=== PATIENT | male | born 1930 | race Asian ===

== ENCOUNTER 2016-04-21 00:43 | Inpatient (IN) | payer OTHER, MEDICAID ==
[~2016-04-21] VITALS: Ht 170.2 cm; Wt 77.4 kg
[2016-04-21] VITALS (7 sets, daily range): BP systolic 105–135; BP diastolic 51–74
[~2016-04-21 00:43] MED LIST: ASPI-825 PO; BENA1TAB17 PO; DOXA2TAB PO; DUTA.5 PO; FERR-89 PO; ISOS30TA6 PO; LORA1TAB3 PO; METO-323 PO; MULT-1259 PO; NITR.4 SL; OMEP20 PO; SIMV-259 PO; VITA1TAB20 PO
[2016-04-21] MEDS ORDERED: ACETAMINOPHEN 500 MG TABLET PO ONE (02:30)
[2016-04-21] MEDS ORDERED: ALBUTEROL SULFATE 5 MG/ML 20 ML NEB SOLN [BULK] NEB ONE (02:30)
[2016-04-21] MEDS ORDERED: CefTRIAXone 1 GM/DEXTROSE 50 ML IV ONE (02:30)
[2016-04-21] MEDS ORDERED: IPRATROPIUM BROMIDE 0.5 MG/2.5 ML NEB SOLUTION NEB ONE (02:30)
[2016-04-21] MEDS ORDERED: MethylPREDNISolone SOD SUCC 125 MG/2 ML VIAL IVP ONE (02:30)
[2016-04-21 02:41] LABS: BASOPHILS # (AUTO) 0.03 K/uL (0.00-0.20); BASOPHILS % (AUTO) 0.3 % (0.0-2.0); EOSINOPHILS # (AUTO) 0.03 K/uL (0.00-0.70); EOSINOPHILS % (AUTO) 0.36 % (1.0-6.0); HEMATOCRIT 33.5 % (41-53); HEMOGLOBIN 10.9 g/dL (13.5-17.5); LYMPHOCYTES # (AUTO) 0.5 K/uL (1.0-4.8); LYMPHOCYTES % (AUTO) 6.5 % (22.0-44.0); MEAN CORPUSCULAR HGB CONC 32.4 G/dL (31.0-37.0); MEAN CORPUSCULAR VOLUME 74 fL (80-100); MONOCYTES # (AUTO) 0.6 K/uL (0.1-1.0); MONOCYTES % (AUTO) 7.1 % (2.0-9.0); NEUTROPHILS # (AUTO) 7.1 K/uL (1.8-7.7); NEUTROPHILS % (AUTO) 85.7 % (40.0-70.0); PLATELET COUNT (AUTO) 151 K/uL (150-450); RED BLOOD CELL COUNT(AUTO) 4.52 MIL/uL (4.50-5.90); RED CELL DISTRIBUTION WIDTH 16.5 % (11.5-14.5); WHITE BLOOD COUNT (AUTO) 8.3 K/uL (4.5-11.0)
[2016-04-21 02:50] LABS: ANION GAP 8 mmol/L (8-16); CALCIUM, TOTAL 8.4 mg/dL (8.8-10.5); CARBON DIOXIDE 27 mmol/L (22-29); CHLORIDE 98 mmol/L (98-107); CREATININE 0.96 mg/dL (0.60-1.30); GLOMERULAR FILTR. RATE CALC > 60 mL/min (>60); POTASSIUM 3.7 mmol/L (3.5-5.1); SODIUM SERUM 133 mmol/L (136-145); UREA NITROGEN, BLOOD 16 mg/dL (7-18)
[2016-04-21 02:56] LABS: ALANINE AMINOTRANSFERASE 34 U/L (12-78); ALBUMIN 3.5 g/dL (3.4-5.0); ASPARTATE AMINOTRANSFERASE 23 U/L (15-37); BILIRUBIN,TOTAL 0.4 mg/dL (0.1-1.0); TOTAL PROTEIN, SERUM 7.8 g/dL (6.4-8.2)
[2016-04-21 02:59] LABS: RBC MORPHOLOGY COMMENT ABNORMAL RBC MORPH
[2016-04-21 03:00] LABS: B-TYPE NATRIURETIC PEPTIDE 38 pg/mL (0-100)
[2016-04-21] MEDS ORDERED: ASPIRIN 325 MG TABLET PO ONE (04:15)
[2016-04-21] MEDS ORDERED: 0.9% SODIUM CHLORIDE 10 ML SYRINGE IVP PRN (04:15)
[2016-04-21] MEDS ORDERED: ACETAMINOPHEN 325 MG TABLET PO PRN ×2 (04:15→05:15)
[2016-04-21] MEDS ORDERED: ONDANSETRON HCL 4 MG/2 ML VIAL IVP PRN ×2 (04:15→05:15)
[2016-04-21 05:04] LABS: INFLUENZA TYPE B NEGATIVE FOR TYPE B (NEGATIVE)
[2016-04-21] MEDS ORDERED: BISACODYL 10 MG RECTAL RECTAL SUPPOSITORY PR PRN (05:15)
[2016-04-21] MEDS ORDERED: ZOLPIDEM TARTRATE 5 MG TABLET PO PRN (05:15)
[2016-04-21] MEDS ORDERED: LORazepam 0.5 MG TABLET PO PRN (05:15)
[2016-04-21] MEDS ORDERED: IPRATROPIUM BROMIDE 0.5 MG/2.5 ML NEB SOLUTION NEB PRN (05:15)
[2016-04-21] MEDS ORDERED: OxyCODONE HCL/ACETAMINOPHEN 5-325 MG TABLET PO PRN (05:15)
[2016-04-21] MEDS ORDERED: ALBUTEROL SULFATE 2.5 MG/0.5 ML NEB SOLUTION NEB PRN (05:15)
[2016-04-21] MEDS ORDERED: MAGNESIUM HYDROXIDE SUSPENSION 30 ML UDCUP PO PRN (05:15)
[2016-04-21] MEDS ORDERED: IPRATROPIUM BROMIDE 0.5 MG/2.5 ML NEB SOLUTION NEB SCH (07:00)
[2016-04-21] MEDS ORDERED: ALBUTEROL SULFATE 2.5 MG/0.5 ML NEB SOLUTION NEB SCH (07:00)
[2016-04-21] MEDS: OMEPRAZOLE 20 MG CAPSULE PO SCH (08:53)
[2016-04-21] MEDS: FERROUS SULFATE 325 MG EC TABLET PO SCH (08:53)
[2016-04-21] MEDS: MULTIVITAMINS WITH MINERALS, THERAPEUTIC TABLET PO SCH (08:54)
[2016-04-21] MEDS: METOPROLOL SUCCINATE 25 MG ER TABLET PO SCH (08:54)
[2016-04-21] MEDS: HYDROCHLOROTHIAZIDE 25 MG TABLET PO SCH (08:55)
[2016-04-21] MEDS: HEPARIN SODIUM,PORCINE 5,000 UNITS/ML VIAL SQ SCH ×2 (08:56→20:52)
[2016-04-21] MEDS: DOXAZOSIN MESYLATE 2 MG TABLET PO SCH (08:59)
[2016-04-21] MEDS ORDERED: MethylPREDNISolone SOD SUCC 125 MG/2 ML VIAL IVP SCH (09:00)
[2016-04-21] MEDS ORDERED: [UNRECOGNIZED DRUG - OTHER] PO SCH (09:00)
[2016-04-21] MEDS: BENAZEPRIL HCL 10 MG TABLET PO SCH (09:56)
[2016-04-21] MEDS: ISOSORBIDE MONONITRATE 20 MG TABLET PO SCH (09:56)
[2016-04-21] MEDS: MethylPREDNISolone SOD SUCC 40 MG/ML VIAL IVP SCH (18:09)
[2016-04-21] MEDS ORDERED: DUTASTERIDE 0.5 MG CAPSULE PO SCH (18:30)
[2016-04-21 19:43] LABS: APPEARANCE,URINE CLEAR (CLEAR); GLUCOSE, URINE (UA) 500 mg/dL (NEGATIVE); KETONES,URINE NEGATIVE (NEGATIVE); LEUKOCYTE ESTERASE ,URINE NEGATIVE (NEGATIVE); OCCULT BLOOD,URINE NEGATIVE (NEGATIVE); PH,URINE 5.5 (5.0-8.0); PROTEIN,URINE NEGATIVE (NEGATIVE)
[2016-04-21 19:44] LABS: ADD UA MICROSCOPIC YES; RBC,URINE None Seen /HPF (0-2); WBC,URINE None Seen /HPF (0-5)
[2016-04-21] MEDS ORDERED: SIMVASTATIN 10 MG TABLET PO SCH (21:00)
[2016-04-21] MEDS: IPRATROPIUM BROMIDE 0.5 MG/2.5 ML NEB SOLUTION NEB SCH (21:45)
[2016-04-21] MEDS: ALBUTEROL SULFATE 2.5 MG/0.5 ML NEB SOLUTION NEB SCH (21:45)
[2016-04-22] MEDS: MethylPREDNISolone SOD SUCC 40 MG/ML VIAL IVP SCH ×3 (00:27→16:18)
[2016-04-22] MEDS: ALBUTEROL SULFATE 2.5 MG/0.5 ML NEB SOLUTION NEB SCH ×3 (02:33→15:16)
[2016-04-22] MEDS: IPRATROPIUM BROMIDE 0.5 MG/2.5 ML NEB SOLUTION NEB SCH ×3 (02:33→15:16)
[2016-04-22] MEDS: GuaiFENesin/D-METHORPHAN/PHENYLEPH 5 ML LIQUID ORAL.SYG PO PRN ×2 (03:50→09:01)
[2016-04-22 04:00] VITALS: BP 132/70
[2016-04-22 06:32] LABS: BASOPHILS % (AUTO) 0.2 % (0.0-2.0); EOSINOPHILS % (AUTO) 0 % (1.0-6.0); HEMATOCRIT 32.2 % (41-53); HEMOGLOBIN 9.9 g/dL (13.5-17.5); LYMPHOCYTES # (AUTO) 0.8 K/uL (1.0-4.8); LYMPHOCYTES % (AUTO) 7.2 % (22.0-44.0); MEAN CORPUSCULAR HEMOGLOBIN 23.1 pg (26.0-34.0); MEAN CORPUSCULAR HGB CONC 30.8 G/dL (31.0-37.0); MEAN CORPUSCULAR VOLUME 75 fL (80-100); MONOCYTES # (AUTO) 0.3 K/uL (0.1-1.0); NEUTROPHILS # (AUTO) 9.8 K/uL (1.8-7.7); PLATELET COUNT (AUTO) 162 K/uL (150-450); RED BLOOD CELL COUNT(AUTO) 4.29 MIL/uL (4.50-5.90); RED CELL DISTRIBUTION WIDTH 16.8 % (11.5-14.5); WHITE BLOOD COUNT (AUTO) 10.9 K/uL (4.5-11.0)
[2016-04-22 06:43] LABS: NEUTROPHILS % (AUTO) 89.6 % (40.0-70.0)
[2016-04-22 07:01] LABS: ALANINE AMINOTRANSFERASE 29 U/L (12-78); ALBUMIN 3.1 g/dL (3.4-5.0); ANION GAP 9 mmol/L (8-16); ASPARTATE AMINOTRANSFERASE 15 U/L (15-37); BILIRUBIN,TOTAL 0.3 mg/dL (0.1-1.0); CALCIUM, TOTAL 8.5 mg/dL (8.8-10.5); CARBON DIOXIDE 26 mmol/L (22-29); CHLORIDE 101 mmol/L (98-107); CREATININE 0.85 mg/dL (0.60-1.30); GLOMERULAR FILTR. RATE CALC > 60 mL/min (>60); PHOSPHORUS 3.5 mg/dL (2.5-4.9); POTASSIUM 3.8 mmol/L (3.5-5.1); SODIUM SERUM 136 mmol/L (136-145); TOTAL PROTEIN, SERUM 7.4 g/dL (6.4-8.2); UREA NITROGEN, BLOOD 19 mg/dL (7-18)
[2016-04-22 07:45] VITALS: BP 141/80
[2016-04-22] MEDS ORDERED: CefTRIAXone 1 GM/DEXTROSE 50 ML IV SCH (08:00)
[2016-04-22 08:24] LABS: RBC MORPHOLOGY COMMENT ABNORMAL RBC MORPH
[2016-04-22] MEDS ORDERED: SODIUM CHLORIDE 0.9% 100 ML ONE (08:42)
[2016-04-22] MEDS: FERROUS SULFATE 325 MG EC TABLET PO SCH (08:55)
[2016-04-22] MEDS: METOPROLOL SUCCINATE 25 MG ER TABLET PO SCH (08:55)
[2016-04-22] MEDS: MULTIVITAMINS WITH MINERALS, THERAPEUTIC TABLET PO SCH (08:56)
[2016-04-22] MEDS: OMEPRAZOLE 20 MG CAPSULE PO SCH (08:56)
[2016-04-22] MEDS: DOXAZOSIN MESYLATE 2 MG TABLET PO SCH ×2 (08:56→09:13)
[2016-04-22] MEDS: BENAZEPRIL HCL 10 MG TABLET PO SCH (08:57)
[2016-04-22] MEDS: HEPARIN SODIUM,PORCINE 5,000 UNITS/ML VIAL SQ SCH (08:58)
[2016-04-22] MEDS: HYDROCHLOROTHIAZIDE 25 MG TABLET PO SCH (09:00)
[2016-04-22] MEDS: ISOSORBIDE MONONITRATE 20 MG TABLET PO SCH (09:15)
[2016-04-22 11:17] VITALS: BP 112/69
[2016-04-22] MEDS ORDERED: ASPIRIN 81 MG CHEWABLE TABLET PO SCH (12:30)
[2016-04-22 15:13] VITALS: BP 117/66
[2016-04-22 16:37] LABS: GLUCOSE COMMENT 1 Received Meds; GLUCOSE,POINT OF CARE 157 MG/DL (70-110)
[2016-04-22] MEDS ORDERED: COMBISP IH (17:38)
[2016-04-22] MEDS ORDERED: PRED5 PO (17:41)
== END 2016-04-22 18:15 | disposition home or self-care (01) | DRG 190 ==
LOC: EMS 00:45 → 5N 04:22
PROVIDERS: ADMIT Internal Medicine; ATTEND Internal Medicine
DX: J44.1 Chronic obstructive pulmonary disease with (acute) exacerbation (principal); J18.9 Pneumonia, unspecified organism; E87.1 Hypo-osmolality and hyponatremia; J44.0 Chronic obstructive pulmonary disease with (acute) lower respiratory infection; N40.0 Benign prostatic hyperplasia without lower urinary tract symptoms; K21.9 Gastro-esophageal reflux disease without esophagitis; I10 Essential (primary) hypertension; E78.00 Pure hypercholesterolemia, unspecified; D50.9 Iron deficiency anemia, unspecified; I25.10 Atherosclerotic heart disease of native coronary artery without angina pectoris; I25.9 Chronic ischemic heart disease, unspecified; E11.9 Type 2 diabetes mellitus without complications; I49.5 Sick sinus syndrome; E78.5 Hyperlipidemia, unspecified; Z79.899 Other long term (current) drug therapy; Z79.84 Long term (current) use of oral hypoglycemic drugs; Z79.82 Long term (current) use of aspirin; Z95.0 Presence of cardiac pacemaker; Z95.5 Presence of coronary angioplasty implant and graft; Z98.890 Other specified postprocedural states
CPT/HCPCS: 82962; 83735; 84100; 87040; 87804; 93005; 93306; 94640; 96365; 96375; 99285; J0696; J1644; J2920; J2930; J7050

== ENCOUNTER → 2016-08-11 | Outpatient (CLI) | payer OTHER, MEDICAID ==
[~2016-08-11] MED LIST changes: +COMBISP IH; +PRED5 PO
== END | disposition home or self-care (01) ==
LOC: RADPV 08:44
PROVIDERS: ATTEND Family Medicine
DX: R10.2 Pelvic and perineal pain (principal)
CPT/HCPCS: 76856

== ENCOUNTER → 2016-10-19 | Outpatient (CLI) | payer OTHER, MEDICAID | END | disposition home or self-care (01) | LOC: RADPV 11:11 | PROVIDERS: ATTEND Family Medicine | DX: M16.0 Bilateral primary osteoarthritis of hip (principal); M17.12 Unilateral primary osteoarthritis, left knee; M65.862 Other synovitis and tenosynovitis, left lower leg | CPT/HCPCS: 73521 ==

== ENCOUNTER → 2016-10-22 | Outpatient (CLI) | payer OTHER, MEDICAID | END | disposition home or self-care (01) | LOC: RADPV 08:42 | PROVIDERS: ATTEND Family Medicine | DX: I70.203 Unspecified atherosclerosis of native arteries of extremities, bilateral legs (principal) | CPT/HCPCS: 93925; 93970 ==

== ENCOUNTER 2017-03-02 11:16 | Inpatient (IN) | payer MEDICARE, MEDICAID ==
[~2017-03-02] VITALS: Ht 167.6 cm; Wt 75.0 kg
[~2017-03-02 11:16] MED LIST changes: -METO-323 PO; +METO25XL PO
[2017-03-02 13:29] LABS: BASOPHILS % (AUTO) 0.6 % (0.0-2.0); HEMATOCRIT 33.6 % (41-53); HEMOGLOBIN 10.7 g/dL (13.5-17.5); LYMPHOCYTES # (AUTO) 0.9 K/uL (1.0-4.8); MEAN CORPUSCULAR HEMOGLOBIN 24.6 pg (26.0-34.0); MEAN CORPUSCULAR VOLUME 77 fL (80-100); MONOCYTES % (AUTO) 14.5 % (2.0-9.0); NEUTROPHILS # (AUTO) 4.9 K/uL (1.8-7.7); NEUTROPHILS % (AUTO) 70.9 % (40.0-70.0); PLATELET COUNT (AUTO) 180 K/uL (150-450); RED BLOOD CELL COUNT(AUTO) 4.36 MIL/uL (4.50-5.90); RED CELL DISTRIBUTION WIDTH 14.9 % (11.5-14.5)
[2017-03-02 13:56] LABS: ANION GAP 9 mmol/L (8-16); CALCIUM, TOTAL 8.5 mg/dL (8.8-10.5); CARBON DIOXIDE 28 mmol/L (22-29); CHLORIDE 98 mmol/L (98-107); CREATININE 1.01 mg/dL (0.60-1.30); GLOMERULAR FILTR. RATE CALC > 60 mL/min (>60); GLUCOSE,RANDOM 127 mg/dL (70-110); POTASSIUM 3.9 mmol/L (3.5-5.1); SODIUM SERUM 135 mmol/L (136-145); UREA NITROGEN, BLOOD 11 mg/dL (7-18)
[2017-03-02 14:01] LABS: ALANINE AMINOTRANSFERASE 36 U/L (12-78); ALBUMIN 3.3 g/dL (3.4-5.0); ALKALINE PHOSPHATASE 38 U/L (46-116); ASPARTATE AMINOTRANSFERASE 28 U/L (15-37); BILIRUBIN,TOTAL 0.4 mg/dL (0.1-1.0); TOTAL PROTEIN, SERUM 8.3 g/dL (6.4-8.2)
[2017-03-02 15:18] LABS: B-TYPE NATRIURETIC PEPTIDE 103 pg/mL (0-100)
[2017-03-02] MEDS ORDERED: AZITHROMYCIN 500 MG/NS 250 ML IV ONE (16:45)
[2017-03-02] MEDS ORDERED: CefTRIAXone 1 GM/DEXTROSE 50 ML IV ONE (16:45)
[2017-03-02] MEDS ORDERED: OSELTAMIVIR PHOSPHATE 75 MG CAPSULE PO ONE (16:45)
[2017-03-02 17:43] LABS: INFLUENZA TYPE A NEGATIVE FOR TYPE A (NEGATIVE); INFLUENZA TYPE B NEGATIVE FOR TYPE B (NEGATIVE)
[2017-03-02] MEDS ORDERED: ONDANSETRON HCL 4 MG/2 ML VIAL IVP PRN (17:45)
[2017-03-02 18:20] VITALS: BP 160/73
[2017-03-02] MEDS ORDERED: DULO20CA30 PO (19:51)
[2017-03-02] MEDS ORDERED: CILO100T PO (19:56)
[2017-03-02] MEDS ORDERED: RANO500T3 PO (19:56)
[2017-03-02] MEDS ORDERED: GABA-529 PO (19:56)
[2017-03-02] MEDS ORDERED: OxyCODONE HCL/ACETAMINOPHEN 5-325 MG TABLET PO PRN ×2 (21:00)
[2017-03-02] MEDS ORDERED: PANTOPRAZOLE SODIUM 40 MG/VIAL IVP SCH (21:00)
[2017-03-02] MEDS ORDERED: NITROGLYCERIN 0.4 MG SUBLINGUAL TABLET #25 SL PRN (21:00)
[2017-03-02] MEDS ORDERED: 0.9% SODIUM CHLORIDE 10 ML SYRINGE IVP PRN (21:00)
[2017-03-02] MEDS ORDERED: ISOSORBIDE MONONITRATE 30 MG ER TABLET PO SCH (21:00)
[2017-03-02 21:02] VITALS: BP 162/95
[2017-03-02] MEDS: RANOLAZINE 500 MG SR TABLET PO SCH (21:49)
[2017-03-02] MEDS: CILOSTAZOL 100 MG TABLET PO SCH (21:49)
[2017-03-02] MEDS: DULoxetine HCL 20 MG CAPSULE PO SCH (21:50)
[2017-03-02] MEDS: DOXAZOSIN MESYLATE 2 MG TABLET PO SCH (21:50)
[2017-03-02] MEDS: LORazepam 1 MG TABLET PO SCH (21:50)
[2017-03-02] MEDS: DOCUSATE SODIUM 100 MG CAPSULE PO SCH (21:50)
[2017-03-02] MEDS: PredniSONE 5 MG TABLET PO SCH (21:51)
[2017-03-02] MEDS: METOPROLOL SUCCINATE 25 MG ER TABLET PO SCH (21:52)
[2017-03-02] MEDS: GABAPENTIN 100 MG CAPSULE PO SCH (21:52)
[2017-03-02] MEDS: SIMVASTATIN 10 MG TABLET PO SCH (21:53)
[2017-03-02] MEDS: ACETAMINOPHEN 325 MG TABLET PO PRN (21:53)
[2017-03-02] MEDS ORDERED: ALBUTEROL SULFATE 2.5 MG/0.5 ML NEB SOLUTION NEB PRN (23:15)
[2017-03-03 00:17] VITALS: BP 118/60
[2017-03-03] MEDS: ALBUTEROL SULFATE 2.5 MG/0.5 ML NEB SOLUTION NEB SCH ×4 (02:01→21:16)
[2017-03-03] MEDS: IPRATROPIUM BROMIDE 0.5 MG/2.5 ML NEB SOLUTION NEB SCH ×4 (02:01→21:16)
[2017-03-03 04:17] VITALS: BP 118/61
[2017-03-03] MEDS: ACETAMINOPHEN 325 MG TABLET PO PRN (05:44)
[2017-03-03 06:44] LABS: EOSINOPHILS % (AUTO) 0.1 % (1.0-6.0); HEMATOCRIT 29.5 % (41-53); HEMOGLOBIN 9.5 g/dL (13.5-17.5); LYMPHOCYTES # (AUTO) 1.1 K/uL (1.0-4.8); LYMPHOCYTES % (AUTO) 15.8 % (22.0-44.0); MEAN CORPUSCULAR HEMOGLOBIN 24.5 pg (26.0-34.0); MEAN CORPUSCULAR HGB CONC 32.2 G/dL (31.0-37.0); MEAN CORPUSCULAR VOLUME 76 fL (80-100); MONOCYTES # (AUTO) 1.1 K/uL (0.1-1.0); MONOCYTES % (AUTO) 15.7 % (2.0-9.0); NEUTROPHILS # (AUTO) 4.8 K/uL (1.8-7.7); NEUTROPHILS % (AUTO) 68.4 % (40.0-70.0); PLATELET COUNT (AUTO) 163 K/uL (150-450); RED BLOOD CELL COUNT(AUTO) 3.88 MIL/uL (4.50-5.90); RED CELL DISTRIBUTION WIDTH 14.5 % (11.5-14.5)
[2017-03-03 06:47] LABS: ANION GAP 9 mmol/L (8-16); CALCIUM, TOTAL 7.9 mg/dL (8.8-10.5); CARBON DIOXIDE 27 mmol/L (22-29); CHLORIDE 99 mmol/L (98-107); CREATININE 0.98 mg/dL (0.60-1.30); GLOMERULAR FILTR. RATE CALC > 60 mL/min (>60); GLUCOSE,RANDOM 121 mg/dL (70-110); POTASSIUM 3.9 mmol/L (3.5-5.1); SODIUM SERUM 135 mmol/L (136-145); UREA NITROGEN, BLOOD 14 mg/dL (7-18)
[2017-03-03 08:50] VITALS: BP 103/61
[2017-03-03] MEDS: METOPROLOL SUCCINATE 25 MG ER TABLET PO SCH (09:35)
[2017-03-03] MEDS: PredniSONE 5 MG TABLET PO SCH (09:35)
[2017-03-03] MEDS: DOXAZOSIN MESYLATE 2 MG TABLET PO SCH (09:35)
[2017-03-03] MEDS: PANTOPRAZOLE SODIUM 40 MG DR TABLET PO SCH (09:35)
[2017-03-03] MEDS: LORazepam 1 MG TABLET PO SCH (09:36)
[2017-03-03] MEDS: CILOSTAZOL 100 MG TABLET PO SCH ×2 (09:36→21:01)
[2017-03-03] MEDS: ISOSORBIDE MONONITRATE 20 MG TABLET PO SCH (09:36)
[2017-03-03] MEDS: DOCUSATE SODIUM 100 MG CAPSULE PO SCH ×2 (09:42→21:01)
[2017-03-03 12:35] VITALS: BP 106/65
[2017-03-03] MEDS: AZITHROMYCIN 500 MG/NS 250 ML IV SCH (15:55)
[2017-03-03] MEDS: CefTRIAXone 1 GM/DEXTROSE 50 ML IV SCH (17:05)
[2017-03-03 17:15] VITALS: BP 121/72
[2017-03-03] MEDS ORDERED: DUTASTERIDE 0.5 MG CAPSULE PO SCH (18:00)
[2017-03-03 19:54] VITALS: BP 136/80
[2017-03-03] MEDS: DULoxetine HCL 20 MG CAPSULE PO SCH (21:00)
[2017-03-03] MEDS: GABAPENTIN 100 MG CAPSULE PO SCH (21:00)
[2017-03-03] MEDS: SIMVASTATIN 10 MG TABLET PO SCH (21:00)
[2017-03-03] MEDS: RANOLAZINE 500 MG SR TABLET PO SCH (21:00)
[2017-03-04 00:25] VITALS: BP 121/73
[2017-03-04] MEDS: ALBUTEROL SULFATE 2.5 MG/0.5 ML NEB SOLUTION NEB SCH ×3 (01:35→13:50)
[2017-03-04] MEDS: IPRATROPIUM BROMIDE 0.5 MG/2.5 ML NEB SOLUTION NEB SCH ×3 (01:35→13:50)
[2017-03-04 05:34] VITALS: BP 135/75
[2017-03-04 08:00] VITALS: BP 144/84
[2017-03-04] MEDS: LORazepam 1 MG TABLET PO SCH (08:54)
[2017-03-04] MEDS: PredniSONE 5 MG TABLET PO SCH (08:54)
[2017-03-04] MEDS: CILOSTAZOL 100 MG TABLET PO SCH (08:54)
[2017-03-04] MEDS: PANTOPRAZOLE SODIUM 40 MG DR TABLET PO SCH (08:55)
[2017-03-04] MEDS: METOPROLOL SUCCINATE 25 MG ER TABLET PO SCH (08:55)
[2017-03-04] MEDS: DOXAZOSIN MESYLATE 2 MG TABLET PO SCH (08:56)
[2017-03-04] MEDS: ISOSORBIDE MONONITRATE 20 MG TABLET PO SCH (08:56)
[2017-03-04] MEDS: DOCUSATE SODIUM 100 MG CAPSULE PO SCH (09:00)
[2017-03-04 12:00] VITALS: BP 128/78
[2017-03-04 16:00] VITALS: BP 126/78
[2017-03-04] MEDS: AZITHROMYCIN 500 MG/NS 250 ML IV SCH (16:36)
[2017-03-04] MEDS: CefTRIAXone 1 GM/DEXTROSE 50 ML IV SCH (17:57)
[2017-03-04] MEDS ORDERED: AMOX1TAB16 PO (19:02)
== END 2017-03-04 20:09 | disposition home or self-care (01) | DRG 190 ==
LOC: EMS 11:17 → 4E 17:34
PROVIDERS: ADMIT Internal Medicine; ATTEND Internal Medicine
DX: J44.0 Chronic obstructive pulmonary disease with (acute) lower respiratory infection (principal); J18.9 Pneumonia, unspecified organism; E44.0 Moderate protein-calorie malnutrition; D64.9 Anemia, unspecified; E78.00 Pure hypercholesterolemia, unspecified; I10 Essential (primary) hypertension; I25.10 Atherosclerotic heart disease of native coronary artery without angina pectoris; K21.9 Gastro-esophageal reflux disease without esophagitis; Z95.0 Presence of cardiac pacemaker; Z79.82 Long term (current) use of aspirin; Z79.899 Other long term (current) drug therapy; Z95.5 Presence of coronary angioplasty implant and graft; Z68.26 Body mass index [BMI] 26.0-26.9, adult
CPT/HCPCS: 71046; 87040; 87804; 93005; 94640; 96365; 96368; 99285; J0456; J0696

== ENCOUNTER 2019-01-12 11:55 | Inpatient (IN) | payer MEDICARE, MEDICAID ==
[~2019-01-12] VITALS: Ht 167.6 cm; Wt 87.5 kg
[~2019-01-12 11:55] MED LIST changes: +AMOX500T2 PO; -BENA1TAB17 PO; +CILO100T PO; +DULO20CA30 PO; +GABA-529 PO; -LORA1TAB3 PO; -NITR.4 SL; +NITR0.4T52 SL; -PRED5 PO; +RANO500T3 PO
[2019-01-12] MEDS ORDERED: ATOR20TA86 PO (12:07)
[2019-01-12] MEDS ORDERED: ASPIRIN 81 MG CHEWABLE TABLET PO ONE (12:15)
[2019-01-12] MEDS ORDERED: BECL10.62 IH (12:25)
[2019-01-12] MEDS ORDERED: ASPI-1182 PO (12:29)
[2019-01-12] MEDS ORDERED: LOSA50TA64 PO (12:29)
[2019-01-12 13:40] LABS: BASOPHILS % (AUTO) 0.6 % (0.0-2.0); EOSINOPHILS % (AUTO) 3.5 % (1.0-6.0); HEMOGLOBIN 10.3 g/dL (13.5-17.5); LYMPHOCYTES # (AUTO) 1.4 K/uL (1.0-4.8); LYMPHOCYTES % (AUTO) 31.9 % (22.0-44.0); MEAN CORPUSCULAR HEMOGLOBIN 24.6 pg (26.0-34.0); MEAN CORPUSCULAR HGB CONC 31.3 G/dL (31.0-37.0); MEAN CORPUSCULAR VOLUME 79 fL (80-100); MONOCYTES # (AUTO) 0.6 K/uL (0.1-1.0); MONOCYTES % (AUTO) 13.4 % (2.0-9.0); NEUTROPHILS # (AUTO) 2.2 K/uL (1.8-7.7); NEUTROPHILS % (AUTO) 50.6 % (40.0-70.0); PLATELET COUNT (AUTO) 146 K/uL (150-450); RED CELL DISTRIBUTION WIDTH 16.2 % (11.5-14.5)
[2019-01-12 13:56] LABS: ANION GAP 6 mmol/L (8-16); CALCIUM, TOTAL 8.3 mg/dL (8.8-10.5); CARBON DIOXIDE 29 mmol/L (22-29); CHLORIDE 105 mmol/L (98-107); CREATININE 1.02 mg/dL (0.60-1.30); GLUCOSE,RANDOM 120 mg/dL (70-110); POTASSIUM 4.4 mmol/L (3.5-5.1); SODIUM SERUM 140 mmol/L (136-145); UREA NITROGEN, BLOOD 17 mg/dL (7-18)
[2019-01-12 13:57] LABS: GLOMERULAR FILTR. RATE CALC > 60 mL/min (>60)
[2019-01-12] MEDS ORDERED: 0.9% SODIUM CHLORIDE 10 ML SYRINGE IVP PRN ×2 (14:00→20:15)
[2019-01-12] MEDS ORDERED: ONDANSETRON HCL 4 MG/2 ML VIAL IVP PRN ×2 (14:00→20:15)
[2019-01-12] MEDS ORDERED: ACETAMINOPHEN 325 MG TABLET PO PRN (14:00)
[2019-01-12 14:01] LABS: B-TYPE NATRIURETIC PEPTIDE 58 pg/mL (0-100)
[2019-01-12 14:23] LABS: ALANINE AMINOTRANSFERASE 24 U/L (12-78); ALBUMIN 3.5 g/dL (3.4-5.0); ALKALINE PHOSPHATASE 42 U/L (46-116); ASPARTATE AMINOTRANSFERASE 22 U/L (15-37); BILIRUBIN,TOTAL 0.3 mg/dL (0.1-1.0); CREATINE KINASE, TOTAL ONLY 205 U/L (39-308)
[2019-01-12] MEDS ORDERED: NITROGLYCERIN 0.4 MG SUBLINGUAL TABLET #25 SL PRN (20:15)
[2019-01-12] MEDS ORDERED: ZOLPIDEM TARTRATE 5 MG TABLET PO PRN (20:15)
[2019-01-12] MEDS: ACETAMINOPHEN 325 MG TABLET PO PRN (21:11)
[2019-01-12] MEDS: DOCUSATE SODIUM 100 MG CAPSULE PO SCH (21:12)
[2019-01-12] MEDS: GABAPENTIN 100 MG CAPSULE PO SCH (21:12)
[2019-01-12] MEDS: RANOLAZINE 500 MG ER TABLET PO SCH (21:12)
[2019-01-12 21:35] VITALS: BP 140/72
[2019-01-13 00:05] VITALS: BP 145/74
[2019-01-13] MEDS: HEPARIN SODIUM,PORCINE 5,000 UNITS/ML VIAL SQ SCH ×3 (00:56→15:43)
[2019-01-13 05:50] VITALS: BP 149/77
[2019-01-13 07:41] LABS: APPEARANCE,URINE CLEAR (CLEAR); BILIRUBIN,URINE NEGATIVE (NEGATIVE); GLUCOSE, URINE (UA) NEGATIVE (NEGATIVE); KETONES,URINE NEGATIVE (NEGATIVE); LEUKOCYTE ESTERASE ,URINE NEGATIVE (NEGATIVE); NITRATE,URINE NEGATIVE (NEGATIVE); OCCULT BLOOD,URINE NEGATIVE (NEGATIVE); PROTEIN,URINE NEGATIVE (NEGATIVE); UROBILINOGEN,URINE 0.2 mg/dL (<=1.0)
[2019-01-13] MEDS: DOCUSATE SODIUM 100 MG CAPSULE PO SCH ×2 (08:59→20:23)
[2019-01-13] MEDS: ATORVASTATIN CALCIUM 20 MG TABLET PO SCH (09:00)
[2019-01-13] MEDS: FERROUS SULFATE 325 MG EC TABLET PO SCH (09:00)
[2019-01-13] MEDS ORDERED: MAGNESIUM SULFATE 4 GM/WATER 100 ML IV PRN (09:00)
[2019-01-13] MEDS ORDERED: POTASSIUM CHLORIDE 20 MEQ ER TABLET PO PRN (09:00)
[2019-01-13] MEDS: METOPROLOL SUCCINATE 25 MG ER TABLET PO SCH (09:00)
[2019-01-13] MEDS ORDERED: MAGNESIUM SULFATE 2 GM/WATER 50 ML IV PRN (09:00)
[2019-01-13] MEDS ORDERED: MAGNESIUM OXIDE 400 MG TABLET PO PRN (09:00)
[2019-01-13] MEDS: ISOSORBIDE MONONITRATE 30 MG ER TABLET PO SCH (09:00)
[2019-01-13] MEDS ORDERED: POTASSIUM CHL 10 MEQ/WATER 50 ML IV PRN (09:00)
[2019-01-13] MEDS: LOSARTAN POTASSIUM 50 MG TABLET PO SCH (09:00)
[2019-01-13] MEDS: ASPIRIN 81 MG EC TABLET PO SCH (09:01)
[2019-01-13] MEDS: DOXAZOSIN MESYLATE 2 MG TABLET PO SCH (09:01)
[2019-01-13] MEDS: OMEPRAZOLE 20 MG CAPSULE PO SCH (09:01)
[2019-01-13] MEDS: BECLOMETHASONE DIPR HFA 80 MCG/PUFF 10.6 GM INHALER IH SCH (09:12)
[2019-01-13 09:20] LABS: BASOPHILS % (AUTO) 0.7 % (0.0-2.0); EOSINOPHILS % (AUTO) 4.4 % (1.0-6.0); HEMATOCRIT 34.7 % (41-53); HEMOGLOBIN 10.9 g/dL (13.5-17.5); LYMPHOCYTES # (AUTO) 1.3 K/uL (1.0-4.8); LYMPHOCYTES % (AUTO) 35.5 % (22.0-44.0); MEAN CORPUSCULAR HEMOGLOBIN 24.8 pg (26.0-34.0); MEAN CORPUSCULAR HGB CONC 31.5 G/dL (31.0-37.0); MEAN CORPUSCULAR VOLUME 79 fL (80-100); MONOCYTES # (AUTO) 0.4 K/uL (0.1-1.0); MONOCYTES % (AUTO) 9.8 % (2.0-9.0); NEUTROPHILS # (AUTO) 1.9 K/uL (1.8-7.7); NEUTROPHILS % (AUTO) 49.6 % (40.0-70.0); PLATELET COUNT (AUTO) 163 K/uL (150-450); RED BLOOD CELL COUNT(AUTO) 4.41 MIL/uL (4.50-5.90)
[2019-01-13 09:30] LABS: ANION GAP 5 mmol/L (8-16); CALCIUM, TOTAL 8.5 mg/dL (8.8-10.5); CARBON DIOXIDE 27 mmol/L (22-29); CHLORIDE 103 mmol/L (98-107); CREATININE 0.99 mg/dL (0.60-1.30); GLUCOSE,RANDOM 143 mg/dL (70-110); POTASSIUM 3.9 mmol/L (3.5-5.1); SODIUM SERUM 135 mmol/L (136-145); UREA NITROGEN, BLOOD 15 mg/dL (7-18)
[2019-01-13 09:38] LABS: GLOMERULAR FILTR. RATE CALC > 60 mL/min (>60)
[2019-01-13 11:18] VITALS: BP 112/65
[2019-01-13 15:51] VITALS: BP 130/72
[2019-01-13] MEDS ORDERED: SODIUM CHLORIDE 0.9% 250 ML IV ONE (17:08)
[2019-01-13] MEDS ORDERED: DUTASTERIDE 0.5 MG CAPSULE PO SCH (18:30)
[2019-01-13 20:10] VITALS: BP 112/63
[2019-01-13] MEDS: GABAPENTIN 100 MG CAPSULE PO SCH (20:23)
[2019-01-13] MEDS: RANOLAZINE 500 MG ER TABLET PO SCH (20:23)
[2019-01-13 23:38] VITALS: BP 135/76
[2019-01-14] MEDS: ACETAMINOPHEN 325 MG TABLET PO PRN (00:02)
[2019-01-14] MEDS: HEPARIN SODIUM,PORCINE 5,000 UNITS/ML VIAL SQ SCH ×2 (00:02→07:45)
[2019-01-14 04:19] VITALS: BP 138/80
[2019-01-14] MEDS: DOXAZOSIN MESYLATE 2 MG TABLET PO SCH (07:44)
[2019-01-14] MEDS: FERROUS SULFATE 325 MG EC TABLET PO SCH (07:44)
[2019-01-14] MEDS: BECLOMETHASONE DIPR HFA 80 MCG/PUFF 10.6 GM INHALER IH SCH (07:44)
[2019-01-14] MEDS: METOPROLOL SUCCINATE 25 MG ER TABLET PO SCH (07:45)
[2019-01-14] MEDS: ATORVASTATIN CALCIUM 20 MG TABLET PO SCH (07:45)
[2019-01-14] MEDS: DOCUSATE SODIUM 100 MG CAPSULE PO SCH (07:45)
[2019-01-14] MEDS: LOSARTAN POTASSIUM 50 MG TABLET PO SCH (07:45)
[2019-01-14] MEDS: ASPIRIN 81 MG EC TABLET PO SCH (07:45)
[2019-01-14] MEDS: OMEPRAZOLE 20 MG CAPSULE PO SCH (07:45)
[2019-01-14] MEDS: ISOSORBIDE MONONITRATE 30 MG ER TABLET PO SCH (07:45)
[2019-01-14 07:55] VITALS: BP 155/94
[2019-01-14 08:30] LABS: BASOPHILS % (AUTO) 0.5 % (0.0-2.0); EOSINOPHILS % (AUTO) 3.9 % (1.0-6.0); HEMATOCRIT 34.6 % (41-53); HEMOGLOBIN 10.9 g/dL (13.5-17.5); LYMPHOCYTES # (AUTO) 2.1 K/uL (1.0-4.8); LYMPHOCYTES % (AUTO) 46.8 % (22.0-44.0); MEAN CORPUSCULAR HEMOGLOBIN 24.7 pg (26.0-34.0); MEAN CORPUSCULAR HGB CONC 31.4 G/dL (31.0-37.0); MEAN CORPUSCULAR VOLUME 79 fL (80-100); MONOCYTES # (AUTO) 0.5 K/uL (0.1-1.0); MONOCYTES % (AUTO) 10.5 % (2.0-9.0); NEUTROPHILS # (AUTO) 1.7 K/uL (1.8-7.7); NEUTROPHILS % (AUTO) 38.3 % (40.0-70.0); PLATELET COUNT (AUTO) 162 K/uL (150-450); RED CELL DISTRIBUTION WIDTH 16.3 % (11.5-14.5)
[2019-01-14 08:40] LABS: ANION GAP 7 mmol/L (8-16); CALCIUM, TOTAL 8.5 mg/dL (8.8-10.5); CARBON DIOXIDE 29 mmol/L (22-29); CHLORIDE 104 mmol/L (98-107); CREATININE 1.01 mg/dL (0.60-1.30); GLUCOSE,RANDOM 94 mg/dL (70-110); POTASSIUM 4.3 mmol/L (3.5-5.1); SODIUM SERUM 140 mmol/L (136-145); UREA NITROGEN, BLOOD 17 mg/dL (7-18)
[2019-01-14 08:41] LABS: GLOMERULAR FILTR. RATE CALC > 60 mL/min (>60)
== END 2019-01-14 11:55 | disposition home or self-care (01) | DRG 313 ==
LOC: EMS 11:56 → 5N 18:19
PROVIDERS: ADMIT Internal Medicine; ATTEND Internal Medicine
DX: R07.89 Other chest pain (principal); I25.119 Atherosclerotic heart disease of native coronary artery with unspecified angina pectoris; J44.9 Chronic obstructive pulmonary disease, unspecified; K21.9 Gastro-esophageal reflux disease without esophagitis; E78.00 Pure hypercholesterolemia, unspecified; I10 Essential (primary) hypertension; N40.0 Benign prostatic hyperplasia without lower urinary tract symptoms; I25.10 Atherosclerotic heart disease of native coronary artery without angina pectoris; E78.5 Hyperlipidemia, unspecified; Z82.49 Family history of ischemic heart disease and other diseases of the circulatory system; Z95.0 Presence of cardiac pacemaker
CPT/HCPCS: 83735; 93005; 93306; J1644; J3535; J7050

== ENCOUNTER 2019-05-08 05:24 | Day surgery (SDC) | payer MEDICARE, MEDICAID ==
[~2019-05-08] VITALS: Ht 170.2 cm; Wt 90.0 kg
[~2019-05-08 05:24] MED LIST changes: -AMOX500T2 PO; +ASPI-1111 PO; -ASPI-825 PO; +ATOR20TA86 PO; +BECL10.62 IH; -CILO100T PO; -DULO20CA30 PO; +LOSA-88 PO; -SIMV-259 PO; +SODIUM CHLORIDE 0.9% 1,000 ML ONE
[2019-05-08 06:02] LABS: BASOPHILS % (AUTO) 0.7 % (0.0-2.0); EOSINOPHILS % (AUTO) 2.8 % (1.0-6.0); HEMATOCRIT 29.4 % (41-53); HEMOGLOBIN 9.4 g/dL (13.5-17.5); LYMPHOCYTES # (AUTO) 1.9 K/uL (1.0-4.8); LYMPHOCYTES % (AUTO) 33.7 % (22.0-44.0); MEAN CORPUSCULAR HEMOGLOBIN 25.1 pg (26.0-34.0); MEAN CORPUSCULAR HGB CONC 31.9 G/dL (31.0-37.0); MEAN CORPUSCULAR VOLUME 79 fL (80-100); MONOCYTES # (AUTO) 0.7 K/uL (0.1-1.0); MONOCYTES % (AUTO) 11.6 % (2.0-9.0); NEUTROPHILS # (AUTO) 2.9 K/uL (1.8-7.7); NEUTROPHILS % (AUTO) 51.2 % (40.0-70.0); PLATELET COUNT (AUTO) 152 K/uL (150-450); RED BLOOD CELL COUNT(AUTO) 3.74 MIL/uL (4.50-5.90); RED CELL DISTRIBUTION WIDTH 15.9 % (11.5-14.5)
[2019-05-08 06:05] LABS: CALCIUM, TOTAL 8.7 mg/dL (8.8-10.5); CREATININE 1.15 mg/dL (0.60-1.30); POTASSIUM 4.4 mmol/L (3.5-5.1)
[2019-05-08 06:09] LABS: PROTHROMBIN TIME 10.2 SEC (9.4-11.6)
[2019-05-08 06:11] LABS: ALBUMIN 3.5 g/dL (3.4-5.0); BILIRUBIN,TOTAL 0.3 mg/dL (0.1-1.0); TOTAL PROTEIN, SERUM 7.7 g/dL (6.4-8.2)
[2019-05-08] MEDS: SODIUM CHLORIDE 0.9% 1,000 ML IV ONE (06:25)
[2019-05-08] MEDS ORDERED: LIDOCAINE/PF 1% 30 ML VIAL ONE (07:28)
[2019-05-08] MEDS ORDERED: SODIUM BICARBONATE 50 MEQ/50 ML VIAL ONE (07:28)
[2019-05-08 08:00] VITALS: BP 150/70
[2019-05-08] MEDS: FentaNYL CITRATE-PF 100 MCG/2 ML VIAL IVP ONE (08:25)
[2019-05-08] MEDS: MIDAZOLAM HCL 2 MG/2 ML VIAL IVP ONE (08:25)
[2019-05-08] MEDS ORDERED: MIDAZOLAM HCL 2 MG/2 ML VIAL ONE (08:25)
[2019-05-08] MEDS ORDERED: FentaNYL CITRATE-PF 100 MCG/2 ML VIAL ONE (08:25)
[2019-05-08] MEDS: LIDOCAINE 1% 30 ML/SOD BICARB 8.4% 4 ML SQ ONE (08:26)
[2019-05-08 09:03] VITALS: BP 128/80
[2019-05-08] MEDS ORDERED: CeFAZolin 1 GM/DEXTROSE 50 ML IV ONE ×2 (09:56→12:30)
== END 2019-05-08 13:30 | disposition home or self-care (01) ==
LOC: SDS 05:24
PROVIDERS: ATTEND Internal Medicine Cardiovascular Disease
DX: Z45.010 Encounter for checking and testing of cardiac pacemaker pulse generator [battery] (principal); I10 Essential (primary) hypertension; R07.9 Chest pain, unspecified; J44.9 Chronic obstructive pulmonary disease, unspecified; M19.90 Unspecified osteoarthritis, unspecified site; E78.00 Pure hypercholesterolemia, unspecified; I25.10 Atherosclerotic heart disease of native coronary artery without angina pectoris; Z79.82 Long term (current) use of aspirin; Z79.899 Other long term (current) drug therapy; Z95.5 Presence of coronary angioplasty implant and graft; Z98.890 Other specified postprocedural states
CPT/HCPCS: 33228; 36415; 80053; 85025; 85610; 85730; 88300; 93005; C1785; J0690; J2250; J3010; J3490 ×2; J7030

== ENCOUNTER 2019-11-19 15:05 | Emergency (ER) | payer MEDICARE, MEDICAID ==
[~2019-11-19] VITALS: Ht 170.2 cm; Wt 86.4 kg
[~2019-11-19 15:05] MED LIST changes: +GABA-1216 PO; -GABA-529 PO; -LOSA-88 PO; +LOSA50TA37 PO; -SODIUM CHLORIDE 0.9% 1,000 ML ONE
[2019-11-19] MEDS ORDERED: D-ME473S53 PO (15:27)
[2019-11-19] MEDS ORDERED: OMEP20 PO (15:27)
[2019-11-19] MEDS ORDERED: CALC-789 PO (15:27)
[2019-11-19] MEDS ORDERED: RANO500T3 PO (15:27)
[2019-11-19] MEDS ORDERED: FentaNYL CITRATE-PF 100 MCG/2 ML VIAL IVP ONE (18:15)
[2019-11-19] MEDS ORDERED: MIDAZOLAM HCL 2 MG/2 ML VIAL IVP ONE (18:15)
[2019-11-19] MEDS ORDERED: FLUMAZENIL 0.1 MG/ML 5 ML VIAL IVP ONE (18:52)
[2019-11-19] MEDS ORDERED: NALOXONE HCL 1 MG/ML 2 ML SYG ONE (18:52)
[2019-11-19 20:04] VITALS: BP 136/69
== END 2019-11-19 20:51 | disposition home or self-care (01) ==
LOC: EMS 15:07 → 4E 20:03 → UNDOADMIN 20:03 → EMS 20:51
DX: S43.005A Unspecified dislocation of left shoulder joint, initial encounter (principal); I25.10 Atherosclerotic heart disease of native coronary artery without angina pectoris; J44.9 Chronic obstructive pulmonary disease, unspecified; K21.9 Gastro-esophageal reflux disease without esophagitis; E78.00 Pure hypercholesterolemia, unspecified; I10 Essential (primary) hypertension; Z95.0 Presence of cardiac pacemaker; Z79.82 Long term (current) use of aspirin; X58.XXXA Exposure to other specified factors, initial encounter; Y93.89 Activity, other specified; Y92.89 Other specified places as the place of occurrence of the external cause; Y99.8 Other external cause status
CPT/HCPCS: 23650; 73030; 99152; 99285; J2250; J2310; J3010; J3490

== ENCOUNTER 2020-01-14 15:53 | Emergency (ER) | payer MEDICARE, MEDICAID ==
[~2020-01-14] VITALS: Ht 170.2 cm; Wt 88.6 kg
[~2020-01-14 15:53] MED LIST changes: +CALC-789 PO; +D-ME473S53 PO
[2020-01-14] MEDS ORDERED: NITROGLYCERIN 2% (1 GM=INCH) PACKET TP ONE (16:15)
[2020-01-14] MEDS ORDERED: ASPIRIN 81 MG CHEWABLE TABLET PO ONE (16:15)
[2020-01-14 16:24] VITALS: BP 118/65
[2020-01-14 16:26] LABS: BASOPHILS % (AUTO) 0.8 % (0.0-2.0); EOSINOPHILS % (AUTO) 6.9 % (1.0-6.0); HEMATOCRIT 28.9 % (41-53); HEMOGLOBIN 9.4 g/dL (13.5-17.5); LYMPHOCYTES # (AUTO) 1.9 K/uL (1.0-4.8); LYMPHOCYTES % (AUTO) 35.1 % (22.0-44.0); MEAN CORPUSCULAR HEMOGLOBIN 25.5 pg (26.0-34.0); MEAN CORPUSCULAR HGB CONC 32.4 G/dL (31.0-37.0); MEAN CORPUSCULAR VOLUME 79 fL (80-100); MONOCYTES # (AUTO) 0.6 K/uL (0.1-1.0); MONOCYTES % (AUTO) 11.5 % (2.0-9.0); NEUTROPHILS # (AUTO) 2.5 K/uL (1.8-7.7); NEUTROPHILS % (AUTO) 45.7 % (40.0-70.0); PLATELET COUNT (AUTO) 170 K/uL (150-450); RED BLOOD CELL COUNT(AUTO) 3.67 MIL/uL (4.50-5.90); RED CELL DISTRIBUTION WIDTH 15.9 % (11.5-14.5)
[2020-01-14 16:42] LABS: ANION GAP 6 mmol/L (8-16); CALCIUM, TOTAL 8.7 mg/dL (8.8-10.5); CARBON DIOXIDE 27 mmol/L (22-29); CHLORIDE 102 mmol/L (98-107); CREATININE 1.07 mg/dL (0.60-1.30); GLOMERULAR FILTR. RATE CALC > 60 mL/min (>60); GLUCOSE,RANDOM 152 mg/dL (70-110); POTASSIUM 4.4 mmol/L (3.5-5.1); SODIUM SERUM 135 mmol/L (136-145); UREA NITROGEN, BLOOD 17 mg/dL (7-18)
[2020-01-14] MEDS ORDERED: IPRATROPIUM BROMIDE 0.5 MG/2.5 ML NEB SOLUTION NEB ONE (17:15)
[2020-01-14] MEDS ORDERED: ALBUTEROL SULFATE 2.5 MG/0.5 ML NEB SOLUTION NEB ONE (17:15)
[2020-01-14] MEDS ORDERED: ALBUTEROL SULFATE HFA 90 MCG/PUFF 8 GM INHALER IH ONE (18:00)
== END 2020-01-14 18:28 | disposition home or self-care (01) ==
LOC: EMS 15:53
DX: J44.9 Chronic obstructive pulmonary disease, unspecified (principal); I25.10 Atherosclerotic heart disease of native coronary artery without angina pectoris; K21.9 Gastro-esophageal reflux disease without esophagitis; E78.00 Pure hypercholesterolemia, unspecified; I10 Essential (primary) hypertension; Z95.0 Presence of cardiac pacemaker; Z79.82 Long term (current) use of aspirin
CPT/HCPCS: 93005; 94640; J3535; 36415-L1; 36415-TC; 71045-TC; J7613